=== PATIENT | female | born 1960 | race African-American/Black ===

== ENCOUNTER → 2016-05-14 | Outpatient (CLI) | payer BC, MEDICARE ==
--- NOTE | 2016-05-14 09:46 | XR ---
EXAMINATION TYPE: XR thoraco lumbar junction DATE OF EXAM ORDERED: 05/14/2016 9:33 AM HISTORY: M54.5 low back pain. COMPARISON: None. FINDINGS: 2 views of the thoracolumbar spine show no definite abnormality. Vertebral body height is maintained. Alignment is normal. The pedicles are intact. IMPRESSION: NORMAL THORACOLUMBAR SPINE.
[2016-05-14 09:51] LABS: Anisocytosis Slight; Basophils % (A) 1 %; CH 26.6; CHCM 31.2; Eosinophils # (A) 0.1 k/uL (0-0.7); Eosinophils % (A) 2 %; HCT 37.7 % (34.0-46.0); HDW 2.49; HGB 11.3 gm/dL (11.4-16.0); Hypochromasia Slight; Luc # (Auto) 0.12; Luc % (Auto) 2; Lymphocytes # (A) 1.7 k/uL (1.0-4.8); Lymphocytes % (A) 29 %; MCH 25.8 pg (25.0-35.0); Mean Platelet Volume 7.8; Monocytes # (A) 0.3 k/uL (0-1.0); Monocytes % (A) 5 %; Neutrophils # (A) 3.6 k/uL (1.3-7.7); Neutrophils % (A) 62 %; RBC 4.38 m/uL (3.80-5.40); RDW 17.5 % (11.5-15.5); WBC 5.8 k/uL (3.8-10.6); WBC (Perox) 6.14
[2016-05-14 10:27] LABS: ALT 27 U/L (9-52); AST 25 U/L (14-36); Alkaline Phosphatase 84 U/L (38-126); Anion Gap 10 mmol/L; Blood Urea Nitrogen 11 mg/dL (7-17); Calcium 9.5 mg/dL (8.4-10.2); Carbon Dioxide 26 mmol/L (22-30); Chloride 108 mmol/L (98-107); Glucose 84 mg/dL (74-99); Non-African American GFR(MDRD) >60 (>60 ml/min/1.73 sqM); Potassium 4.2 mmol/L (3.5-5.1); Sodium 144 mmol/L (137-145); Total Bilirubin 0.6 mg/dL (0.2-1.3)
== END | disposition home or self-care (01) ==
LOC: RADXRMAIN 09:12
PROVIDERS: ATTEND Internal Medicine Rheumatology
DX: M54.5 Low back pain (principal)
CPT/HCPCS: 36415; 72080; 80053; 85025

== ENCOUNTER → 2018-02-10 | Outpatient (CLI) | payer MEDICARE | LOC: LABWHC1 11:57 | PROVIDERS: ATTEND Internal Medicine Rheumatology | DX: M06.9 Rheumatoid arthritis, unspecified (principal) | CPT/HCPCS: 36415 ==

== ENCOUNTER → 2020-11-24 | Outpatient (CLI) | payer MEDICARE ==
--- NOTE | 2020-11-24 13:25 | MR ---
EXAMINATION TYPE: MR cervical spine wo con DATE OF EXAM: 11/24/2020 COMPARISON: None HISTORY: Cervicalgia, long standing RA, limited mobility arms, tingling, pain and weakness TECHNIQUE: Multiplanar, multisequence images of the cervical spine were acquired without contrast. C2-C3: No evidence for degenerative disc disease. No disc bulge/herniation or protrusion. No Canal stenosis. Foramina are patent bilaterally. C3-C4: Posterior broad-based disc bulge causes anterior mass effect on the thecal sac, mild spinal st enosis. No definite foraminal encroachment. C4-C5: There is obliteration of the disc space, posterior extension of endplate disc complex causing mass effect on the cervical cord, there is severe spinal stenosis with abnormal signal, low signal on T1, increased signal on T2 suggesting underlying gliosis, difficult to exclude myelomalacia. Bilater al foraminal encroachment is present right greater than left due to uncovertebral joint hypertrophy a nd facet arthropathy. C5-C6: Posterior disc bulge causes mild anterior mass effect on the thecal sac, only mild spinal sten osis. There is uncovertebral joint hypertrophy and facet arthropathy resulting in left-sided foramina l encroachment. C6-C7: Posterior extension of endplate disc complex causes anterior mass effect on the thecal sac. I question some cord signal change at this level, less severe than at C4-5. There is bilateral foramina l encroachment due to uncovertebral joint hypertrophy and facet arthropathy change. C7-T1: Posterior broad-based disc bulge causes minimal anterior mass effect on the thecal sac. There is bilateral foraminal encroachment. Cervical segments are intact. Craniovertebral junction relationships are within normal limits. There is multilevel spondylosis. Retrolisthesis grade 1 C4-5, C5-6, C6-7. Loss of disc height signal is pr esent at intervertebral levels consistent with disc desiccation and degenerative disc disease. Probab le rightward goiter is noted incidentally. There is extension into the superior chest on the right. IMPRESSION: There are cord signal changes greatest at C4-5 with mass effect due to posterior extension endplate d isc complex. There is obliteration of the disc space at this level which may be due to patient's unde rlying arthropathy, contrast-enhanced exam may be of benefit, discitis felt is likely. Degenerative d isc disease and multilevel foraminal encroachment as described. A [place] critical message alert has been initiated for Thao Sotomayor DO via the [employer] Critical Results System on 11/24/2020 1:23 PM. This message alert has been sent to Thao banuelos DO via the preferences provided by the clinician for the receipt of Radiology Critical Findings. Nannette essage ID [id number].
== END | disposition home or self-care (01) ==
LOC: RADMRIMAIN 12:00
PROVIDERS: ATTEND Internal Medicine Rheumatology
DX: M50.323 Other cervical disc degeneration at C6-C7 level (principal); M47.812 Spondylosis without myelopathy or radiculopathy, cervical region
CPT/HCPCS: 72141

== ENCOUNTER → 2021-01-09 | Outpatient (CLI) | payer MEDICARE ==
--- NOTE | 2021-01-12 12:39 | MM ---
Reason for exam: screening (asymptomatic). Last mammogram was performed 4 years and 1 month ago. History: Patient is postmenopausal. Physical Findings: A clinical breast exam by your physician is recommended on an annual basis and results should be correlated with mammographic findings. MG 3D Screening Mammo W/Cad Bilateral CC and MLO view(s) were taken. Prior study comparison: December 10, 2016, bilateral MG 3d screening mammo w/cad. The breast tissue is heterogeneously dense. This may lower the sensitivity of mammography. Stable benign calcifications. There is no discrete abnormality. No significant changes when compared with prior studies. ASSESSMENT: Benign, BI-RAD 2 RECOMMENDATION: Routine screening mammogram of both breasts in 1 year.
== END | disposition home or self-care (01) ==
LOC: RADMAMWWP 14:36
PROVIDERS: ATTEND Internal Medicine
DX: Z12.31 Encounter for screening mammogram for malignant neoplasm of breast (principal); Z78.0 Asymptomatic menopausal state
CPT/HCPCS: 77063; 77067

== ENCOUNTER → 2021-02-09 | Outpatient (CLI) | payer MEDICARE ==
--- NOTE | 2021-02-09 12:58 | XR ---
EXAMINATION TYPE: XR chest 2V DATE OF EXAM: 02/09/2021 COMPARISON: NONE HISTORY: Shortness of breath TECHNIQUE: Frontal and lateral views of the chest are obtained. FINDINGS: Scattered senescent parenchymal changes noted. Hyperinflation compatible with COPD. No evidence for infiltrate. No evidence for atelectasis. Heart size is stable. Mediastinal structures are stable and grossly unremarkable. No evidence for hilar prominence. Degenerative changes dorsal spine. IMPRESSION: 1. No evidence for acute pulmonary disease.
[2021-02-09 13:06] LABS: Anisocytosis Slight; Basophils % (A) 1 %; Eosinophils # (A) 0.1 k/uL (0-0.7); Eosinophils % (A) 2 %; HCT 38.5 % (34.0-46.0); HGB 11.8 gm/dL (11.4-16.0); Hypochromasia Slight; Lymphocytes # (A) 2.4 k/uL (1.0-4.8); Lymphocytes % (A) 38 %; MCH 26.8 pg (25.0-35.0); MCHC 30.5 g/dL (31.0-37.0); MCV 87.8 fL (80.0-100.0); Mean Platelet Volume 7.3; Monocytes # (A) 0.3 k/uL (0-1.0); Monocytes % (A) 5 %; Neutrophils # (A) 3.4 k/uL (1.3-7.7); Neutrophils % (A) 54 %; Platelet Count 269 k/uL (150-450); RBC 4.39 m/uL (3.80-5.40); RDW 18.9 % (11.5-15.5); WBC 6.3 k/uL (3.8-10.6)
[2021-02-09 13:11] LABS: Appearance,Urine Clear (Clear); Bilirubin,Urine Negative (Negative); Blood,Urine Negative (Negative); Color,Urine Light Yellow; Glucose,Urine (UA) Negative (Negative); Ketones,Urine Negative (Negative); Leukocyte Esterase,Urine Negative (Negative); Nitrite,Urine Negative (Negative); Protein,Urine Negative (Negative); Specific Gravity,Urine 1.008 (1.001-1.035); Urobilinogen,Urine <2.0 mg/dL (<2.0)
[2021-02-09 13:15] LABS: Partial Thromboplastin Time 29.8 sec (22.0-30.0); Prothrombin Time 10.8 sec (9.0-12.0)
[2021-02-09 13:25] LABS: ALT 16 U/L (4-34); AST 24 U/L (14-36); African American GFR (CKD) >90 (>60 ml/min/1.73 sqM); Albumin 4.1 g/dL (3.5-5.0); Alkaline Phosphatase 89 U/L (38-126); Anion Gap 7 mmol/L; Blood Urea Nitrogen 11 mg/dL (7-17); Calcium 9.5 mg/dL (8.4-10.2); Carbon Dioxide 27 mmol/L (22-30); Chloride 106 mmol/L (98-107); Glucose 93 mg/dL (74-99); Non-African American GFR(CKD) 79 (>60 ml/min/1.73 sqM); Potassium 3.9 mmol/L (3.5-5.1); Sodium 140 mmol/L (137-145); Total Bilirubin 0.5 mg/dL (0.2-1.3); Total Protein 7.9 g/dL (6.3-8.2)
== END | disposition home or self-care (01) ==
LOC: LABPAT 12:03
PROVIDERS: ATTEND Orthopaedic Surgery Orthopaedic Surgery of the Spine
DX: Z01.812 Encounter for preprocedural laboratory examination (principal); Z79.01 Long term (current) use of anticoagulants; I65.29 Occlusion and stenosis of unspecified carotid artery; M06.9 Rheumatoid arthritis, unspecified; Z13.1 Encounter for screening for diabetes mellitus
CPT/HCPCS: 36415; 71046; 80053; 81003; 82306; 83036; 85025; 85610; 85730

== ENCOUNTER 2021-02-18 08:00 | Inpatient (IN) | payer MEDICARE ==
[2021-02-11 15:05] VITALS: BMI 25.0
[2021-02-25] MEDS ORDERED: ceFAZolin 1,000 MG in SODIUM CHLORIDE 0.9% IRRIGATIO 1,000 ML IRRIGATION PRN (05:00)
[2021-02-25] MEDS ORDERED: DEXAMETHASONE SOD PHOSPHATE 4 MG/ML 1 ML VIAL IV ONE (06:13)
[2021-02-25] MEDS ORDERED: ONDANSETRON 4 MG/2 ML VIAL IVP ONE ×2 (06:13→10:56)
[2021-02-25] MEDS ORDERED: LIDOCAINE 1% (10MG/ML) FOR IV START INTRADERMA PRN (06:13)
[2021-02-25] MEDS ORDERED: HYDROmorphone 0.5 MG/0.5 ML SYRINGE IVP PRN ×2 (07:00→14:15)
[2021-02-25] MEDS: LACTATED RINGERS 1,000 ML IV SCH (10:56)
[2021-02-25] MEDS ORDERED: LABETALOL 5 MG/ML VIAL MDV ONE (11:20)
[2021-02-25] MEDS ORDERED: HYDROmorphone (PF) 1 MG/ML ONE (11:20)
[2021-02-25] MEDS ORDERED: SUCCINYLCHOLINE CHLORIDE 100 MG/5 ML SYR IV ONE (11:20)
[2021-02-25] MEDS ORDERED: KETAMINE 10 MG/ML 20 ML VIAL ONE (11:20)
[2021-02-25] MEDS ORDERED: fentaNYL (PF) 50 MCG/ML 2 ML AMP ONE (11:20)
[2021-02-25] MEDS ORDERED: LIDOCAINE 1% INJ 10MG/ML (20 ML MDV) ONE (11:20)
[2021-02-25] MEDS ORDERED: PROPOFOL 10 MG/ML 20 ML VIAL IV ONE (11:20)
[2021-02-25] MEDS ORDERED: MIDAZOLAM 2 MG/2 ML VIAL ONE (11:20)
[2021-02-25] MEDS ORDERED: DEXAMETHASONE SOD PHOSPHATE 4 MG/ML 1 ML VIAL ONE (11:20)
[2021-02-25] MEDS ORDERED: GLYCOPYRROLATE 0.2 MG/ML 2 ML VIAL ONE (11:20)
[2021-02-25] MEDS ORDERED: ROCURONIUM 10 MG/ML (5 ML VIAL) IV ONE (11:20)
[2021-02-25] MEDS ORDERED: diphenhydrAMINE 50 MG/ML 1 ML VIAL ONE (11:20)
[2021-02-25] MEDS ORDERED: NEOSTIGMINE 1 MG/ML 10 ML VIAL ONE (11:20)
[2021-02-25] MEDS ORDERED: BUPIVACAIN-EPI 0.25%-1:200,000 30 ML VIAL SQ ONE (11:55)
[2021-02-25] MEDS ORDERED: GELATIN SPONGE,ABSORB (LARGE) 1 EACH SPONGE TOPICAL ONE (12:02)
[2021-02-25] MEDS ORDERED: THROMBIN (BOVINE) 5,000 UNIT VIAL TOPICAL ONE (12:03)
--- NOTE | 2021-02-25 12:40 | XR ---
EXAMINATION TYPE: XR cervical spine limited DATE OF EXAM: 02/25/2021 COMPARISON: NONE HISTORY: Needle placement TECHNIQUE: One view submitted FINDINGS: There is soft tissue emphysema and endotracheal tube. Surgical instruments are seen overlyi ng the anterior margin the mid and lower cervical spine. IMPRESSION: Intraoperative localization
[2021-02-25] MEDS ORDERED: LACTATED RINGERS 1,000 ML IV ONE (13:09)
[2021-02-25] MEDS ORDERED: ACETAMINOPHEN TAB 325 MG TAB PO PRN (14:15)
[2021-02-25] MEDS ORDERED: BENZOCAINE/MENTHOL LOZENG 1 EACH LOZENGE MUCOUS MEM PRN (14:15)
[2021-02-25] MEDS ORDERED: ONDANSETRON 4 MG/2 ML VIAL IVP PRN (14:15)
[2021-02-25] MEDS ORDERED: traMADol 50 MG TAB PO PRN ×2 (14:15→14:18)
[2021-02-25] MEDS ORDERED: HYDROcodone/APAP 5-325MG 1 EACH TAB PO PRN (14:15)
[2021-02-25] MEDS ORDERED: CYCLOBENZAPRINE 5 MG TAB PO PRN (14:15)
--- NOTE | 2021-02-25 14:27 | P.OP ---
Date of Procedure: 02/25/21 Preoperative Diagnosis: Cervical myelopathy, severe cervical stenosis C4 5 C5 6 C6 7, cervical myelomalacia, upper extremity weakness, upper extremity radiculopathy, degenerative disc disease C4 5 C5 6 C6 7 with vertebral collapse at C5, herniated nucleus pulposus Postoperative Diagnosis: Same Anesthesia: GETA Pathology: none sent Condition: stable Disposition: PACU Description of Procedure: BRIEF OPERATIVE NOTE Preoperative Diagnosis:Cervical myelopathy, severe cervical stenosis C4 5 C5 6 C6 7, cervical myelomalacia, upper extremity weakness, upper extremity radiculopathy, degenerative disc disease C4 5 C5 6 C6 7 with vertebral collapse at C5, herniated nucleus pulposus Postoperative Diagnosis: Procedure: Anterior cervical decompression with discectomy and fusion C4 5 C5 6 C6 7 C5 cervical corpectomy for decompression Harvesting of local autogenous bone graft Placement of interbody graft from C4 to C6 with a peek cage Placement of interbody allograft bone graft C6 7 Application of anterior cervical plate C4 to C7 Surgeon: Dr. Otto Otter Trawler Boatswain: Laith Waters is present throughout the entire the case persistence during positioning, dissection, exposure, visualization, and all crucial elements of the case as well as closure. Anesthesia: General anesthesia Estimated blood loss: Approximately 200 mL Complications: None apparent Components implanted: K2M peek anterior cervical cage, 19 mm with lordosis from C4 to C6, Vikos interbody allograft bone graft at C6 7 Disposition: To recovery room in good stable condition. OPERATIVE INDICATIONS The patient has had long-standing issues in their neck and upper extremities. She has long history of rheumatoid arthritis as well. She has significant deformities in her hands but has been noticing significant changes at her upper extremities and with her gait. She is having weakness in her right upper extremity. She does not have severe changes at her cervical spine including some anterior collapse at C5 with severe stenosis C4 5 C5 6 C6 7 and stenosis behind the vertebral body of C5. This correlated with her neck and upper extremity symptoms along with the myelomalacia and her myelopathy symptoms that she was expanding. The patient has been through conservative treatment. She is having worsening of her symptoms and we discussed surgical treatment options and the possibility of continuing conservative care for her. We discussed various treatment options including surgery, and the patient wishes to proceed with surgery We discussed the risk, patient's alternatives and benefits of surgery including but not limited to, risk of bleeding risk of infection, risk of need for further surgery, risk of decreased, loss of motion, muscle function, malunion nonunion, hardware failure, nerve damage, paralysis, heart attack, and . OPERATIVE SUMMARY After discussing all the risks, patient alternatives and benefits at length, the patient elected to proceed with surgical intervention, signed informed consent, and presented for their procedure. The patient was seen and examined in the preoperative holding area and the surgical site was marked. The patient was given antibiotics and brought to the operating room. The patient was positioned on the operating room table in a supine position being careful to pad any bony prominences and pressure points. The patient was sedated and intubated by anesthesia in standard fashion. Once the airway and C- spine were stabilized the patient's arms were padded and tucked at her side, with her shoulders gently taped. The head was placed in a donut pad with the neck in good neutral alignment and position. We were careful to maintain the patient's cervical spine and good neutral alignment and position throughout. The patient was prepped and draped in a normal standard fashion. An appropriate timeout and keystone protocol performed. We were able to proceed with the surgery. The local wound area was infiltrated with local anesthetic. An incision was made transversely approximately 2-1/2 cm over the appropriate levels at C5 6. Dissection was taken down subcutaneously to the level of the platysma which was split in line with its fibers. Dissection was taken with a carotid approach, with the trachea and esophagus medial and the carotid sheath laterally. We dissected down to the anterior surface of the vertebral bodies. Intraoperative x-ray was taken which showed a marker at the appropriate level at C4 5 and at C5 6. It was somewhat difficult to ascertain the image given her severe changes in the collapse at C4 5. We were able to positively identify the level. With the appropriate level positively confirmed, we were able to proceed with discectomy at the appropriate levels. All of the operative levels were exposed appropriately. Started at C6 7 with anterior cervical discectomy. The patient had all their twitches back, and there was no evidence of recurrent laryngeal issue. The wound was copiously irrigated and suctioned dry as had been done periodically throughout the case. At the appropriate level/levels, I established an annulotomy with an 11 blade scalpel. At C6 7 A discectomy was performed with a combination of pituitary rongeurs, curettes, a high-speed bur, and Kerrison rongeurs. The posterior longitudinal ligament was taken down as were any posterior osteophytes. This gave good central and bilateral foraminal decompression. There is no evidence of any dural tear or leak. I performed a similar procedure at C5 6. I prepared the endplate at C5 6 as well. At C6 [address] interbody allograft bone graft after appropriate measuring. The endplates were prepared with a high-speed bur. With the endplates in good parallel position, I was able to size for the appropriate size interbody graft. The wound was irrigated and suctioned dry the graft was prepared and malleted into position. It had good alignment and position with the anterior surface flush with the anterior surface of the vertebral bodies of C6 7. At C5 6 and left the disc space opened in preparation for the later corpectomy. I performed further discectomy similarly to as stated above at C4 5. There is severe and nearly complete collapse of disc space at C4 5 and large anterior osteophytes which are taken down. As able get a good discectomy at that level. There was large posterior osteophytic spurring at C4 5 and severely thickened ligamentum with disc herniation. I was able to remove this and get excellent central and bilateral foraminal compression at the level of the disc space at C4 5. There is further stenosis behind C5 and I proceeded with the corpectomy of C5 to get further central decompression behind C5. This gave excellent decompression of the cord. With the decompression completed there is no evidence any dural tear or leak. Good hemostasis was maintained. I then prepared for placement of the interbody graft from C4 C6. The endplates were prepared appropriately and a caliper easily lysed to establish the appropriate size peek cage. The cage was chosen and filled with local autogenous bone graft was harvested at the corpectomy. Next using gentle in- line traction from anesthesia I was able to place the cage at the corpectomy site from C4 to C6 and excellent alignment position with excellent fit and fill and stability. It was checked and found have good stability from C4 to C6. With the grafts intact, I was able to measure and contour and appropriate sized plate. The plate was positioned at the midline over the appropriate levels from C4 to C7. Screw holes were established with a hand drill and drill guide. Screws were placed in good alignment and position with excellent bony purchase. They were seated under the locking device. The construct was checked and found to be stable. Intraoperative x-ray was taken which showed good alignment and position of the implants at the appropriate levels from C4 to C7. There was no evidence of any dural tear or leak. Good hemostasis was maintained. The wound was copiously irrigated and suctioned dry as had been done periodically throughout the case. I placed a deep drain at the site and then The platysma was closed with absorbable suture. The subcutaneous tissue was closed. The subcuticular tissue was closed with absorbable suture. The wound was cleaned and dried and dressed appropriately. A hard cervical collar was placed appropriately. The patient was woken up by anesthesia, extubated, transferred back gently to their hospital bed and brought to the recovery room in good stable condition. The patient will be admitted to the hospital for appropriate postoperative care, medical management and monitoring. We will continue to follow them closely about the postoperative course.
--- NOTE | 2021-02-25 14:28 | XR ---
EXAMINATION TYPE: XR cervical spine 1V DATE OF EXAM: 02/25/2021 COMPARISON: NONE HISTORY: Hardware placement TECHNIQUE: Four views are submitted. FINDINGS: ET tube noted and is postsurgical change involving the mid and lower cervical alignment is anatomic. IMPRESSION: 1. Postoperative.
[2021-02-25] MEDS: SODIUM CHLORIDE 0.9% 1,000 ML IV SCH (17:14)
[2021-02-25] MEDS ORDERED: LATANOPROST 0.005% OPHTH DROPS 2.5 ML BTL BOTH EYES SCH (21:00)
[2021-02-26 04:45] VITALS: BP 142/75; RESP 16; TEMP 98.2
[2021-02-26] MEDS: SODIUM CHLORIDE 0.9% 1,000 ML IV SCH (05:46)
[2021-02-26] MEDS: LACTATED RINGERS 1,000 ML IV SCH (07:45)
[2021-02-26] MEDS ORDERED: CHOLECALCIFEROL 25 MCG (1000 IU) TABLET PO SCH (09:00)
[2021-02-26] MEDS ORDERED: SENNOSIDES-DOCUSATE SODIUM 1 EACH TAB PO SCH (09:00)
--- NOTE | 2021-02-26 09:57 | P.DS ---
Providers Date of admission: 02/25/21 09:57 Attending physician: Arthur Otto Primary care physician: Aspen Ramírez MD Hospital Course: The patient presented on the day of admission as per their operative note. She underwent surgical decompression and fusion with her severe cervical stenosis and myelopathy and myelomalacia. Upper extremity weakness. She feels she is doing well postoperatively. She is tolerating a soft diet and her pain is controlled. She is ambulatory in her room. Physical Exam The incision site is clean dry and intact. There is no erythema no drainage. There is no purulence no evidence of infection. Abdomen soft and nontender. Chest has good excursion with deep inspiration and expiration. The patient has active and passive range of motion intact at the upper and lower extremities. There is no acute change in neurologic status. Hospital Course Postoperative day 1 status post anterior cervical decompression and fusion for severe cervical stenosis with myelopathy. The patient has been making good progress postoperatively. They have completed the prophylactic antibiotics without any signs or symptoms of infection. The patient has been able to advance their diet, and is tolerating diet adequately. The pain was initially controlled with IV medications and is now controlled appropriately with oral medications. The patient has been able to increase their mobilization. The patient has progressed appropriately. I think they are in good stable condition for discharge today. They will be sent home with appropriate prescriptions. I answered their questions to the best of my ability in a language that they can understand and they are agreeable with the plan. They will follow up as directed in approximately 2 weeks or sooner if she is having. Patient Condition at Discharge: Good Plan - Discharge Summary Discharge Rx Participant: Yes New Discharge Prescriptions: New HYDROcodone/APAP 5-325MG [[place] 5] 1 each PO Q6HR PRN #28 tab PRN Reason: Pain No Action Latanoprost/Pf [Latanoprost 0.005% Eye Drop] 1 drop BOTH EYES HS Cholecalciferol [Vitamin D3 (25 Mcg = 1000 Iu)] 50 mcg PO DAILY Celecoxib [CeleBREX] 200 mg PO BID Etanercept [Enbrel] 25 mg SQ TH traMADol HCL [Ultram] 50 mg PO Q6HR PRN PRN Reason: Pain Discharge Medication List Celecoxib [CeleBREX] 200 mg PO BID 02/11/21 [History] Cholecalciferol [Vitamin D3 (25 Mcg = 1000 Iu)] 50 mcg PO DAILY 02/11/21 [History] Etanercept [Enbrel] 25 mg SQ TH 02/11/21 [History] Latanoprost/Pf [Latanoprost 0.005% Eye Drop] 1 drop BOTH EYES HS 02/11/21 [History] traMADol HCL [Ultram] 50 mg PO Q6HR PRN 02/11/21 [History] HYDROcodone/APAP 5-325MG [[place] 5] 1 each PO Q6HR PRN #28 tab 02/26/21 [Rx] Follow up Appointment(s)/Referral(s): Arthur Otto DO [Doctor of Osteopathic Medicine] - 2 Weeks Activity/Diet/Wound Care/Special Instructions: Keep site clean. May shower with waterproof Tegaderm intact. Do not soak in a tub. After 72 hours postoperatively, patient May remove dressing and then may shower with area uncovered. Leave glue intact and allow it to fray off on its own. May ambulate as tolerated. Avoid heavy or rigorous activity. No repetitive bending twisting or lifting. No overhead work. . Keep Hard cervical collar intact. May remove collar for bathing, but should avoid and significant motion with collar off Discharge Disposition: HOME SELF-CARE
[2021-02-26 11:15] VITALS: PULSE 78
== END 2021-02-26 12:17 | disposition home or self-care (01) | DRG 472 ==
LOC: EDSTATUS 08:00 → 2ORMAIN 02-25 09:57 → 5NMEDONC 02-25 15:20
PROVIDERS: ADMIT Orthopaedic Surgery Orthopaedic Surgery of the Spine; ATTEND Orthopaedic Surgery Orthopaedic Surgery of the Spine
PROC: 0RG20A0 Fusion of 2 or more Cervical Vertebral Joints with Interbody Fusion Device, Anterior Approach, Anterior Column, Open Approach (ICD-10-PCS; 2021-02-25)
PROC: 0RG2070 Fusion of 2 or more Cervical Vertebral Joints with Autologous Tissue Substitute, Anterior Approach, Anterior Column, Open Approach (ICD-10-PCS; 2021-02-25)
PROC: 0RB30ZZ Excision of Cervical Vertebral Disc, Open Approach (ICD-10-PCS; principal; 2021-02-25 11:15)
DX: M48.02 Spinal stenosis, cervical region (principal); G95.89 Other specified diseases of spinal cord; M47.12 Other spondylosis with myelopathy, cervical region; R53.1 Weakness; M06.9 Rheumatoid arthritis, unspecified; M50.121 Cervical disc disorder at C4-C5 level with radiculopathy; M50.222 Other cervical disc displacement at C5-C6 level; M50.223 Other cervical disc displacement at C6-C7 level; F17.200 Nicotine dependence, unspecified, uncomplicated; F17.218 Nicotine dependence, cigarettes, with other nicotine-induced disorders; E66.3 Overweight; M43.12 Spondylolisthesis, cervical region; M50.321 Other cervical disc degeneration at C4-C5 level; M50.323 Other cervical disc degeneration at C6-C7 level; Z20.822 Contact with and (suspected) exposure to COVID-19
CPT/HCPCS: 72020; 72040; 87635

== ENCOUNTER → 2024-01-23 | Outpatient (CLI) | payer MEDICARE ==
[2024-01-23 14:58] LABS: Basophils # (A) 0.06 X 10*3/uL (0.00-0.10); Basophils % (A) 1.5 %; Eosinophils # (A) 0.11 X 10*3/uL (0.04-0.35); Eosinophils % (A) 2.7 %; HCT 34.9 % (37.2-46.3); Lymphocytes % (A) 49.4 %; MCH 25.1 pg (27.0-32.0); MCHC 31.5 g/dL (32.0-37.0); MCV 79.5 FL (80.0-97.0); Mean Platelet Volume 9.4 FL (9.5-12.2); Monocytes # (A) 0.42 X 10*3/uL (0.20-1.00); Monocytes % (A) 10.4 %; NRBC Per 100 WBC 0 X 10*3/uL (0.00-0.01); Neutrophils # (A) 1.45 X 10*3/uL (1.80-7.70); Neutrophils % (A) 35.8 %; Platelet Count 281 X 10*3/uL (140-440); RBC 4.39 X 10*6/uL (4.10-5.20); RDW 18.9 % (11.5-14.5); WBC 4.05 X 10*3/uL (4.50-10.00)
[2024-01-23 15:00] LABS: ALT 17 U/L (8-44); AST 24 U/L (13-35); Albumin 4.4 g/dL (3.8-4.9); Albumin/Globulin Ratio 1.42 Ratio (1.60-3.17); Alkaline Phosphatase 78 U/L (41-126); Blood Urea Nitrogen 16.2 mg/dL (9.0-27.0); Calcium 9.6 mg/dL (8.7-10.3); Carbon Dioxide 25.5 mmol/L (21.6-31.8); Chloride 107 mmol/L (96-109); Globulin 3.1 g/dL (1.6-3.3); Glucose 86 mg/dL (70-110); Potassium 4.6 mmol/L (3.5-5.5); Sodium 143 mmol/L (135-145); Total Bilirubin 0.5 mg/dL (0.3-1.2); Total Protein 7.5 g/dL (6.2-8.2)
== END | disposition home or self-care (01) ==
LOC: LABWHC1 10:31
PROVIDERS: ATTEND Internal Medicine Rheumatology
DX: M06.9 Rheumatoid arthritis, unspecified (principal)
CPT/HCPCS: 36415; 80053; 85025

== ENCOUNTER → 2024-09-14 | Outpatient (CLI) | payer MEDICARE ==
[2024-09-14 15:29] LABS: Basophils # (A) 0.05 X 10*3/uL (0.00-0.10); Basophils % (A) 1.2 %; Eosinophils # (A) 0.18 X 10*3/uL (0.04-0.35); Eosinophils % (A) 4.3 %; HCT 36.6 % (37.2-46.3); HGB 11.4 g/dL (12.0-15.0); Immature Grans, Automated 0.20 %; Lymphocytes # (A) 2.08 X 10*3/uL (0.90-5.00); Lymphocytes % (A) 49.4 %; MCH 25.5 pg (27.0-32.0); MCHC 31.1 g/dL (32.0-37.0); MCV 81.9 FL (80.0-97.0); Monocytes # (A) 0.45 X 10*3/uL (0.20-1.00); Monocytes % (A) 10.7 %; NRBC Per 100 WBC 0 X 10*3/uL (0.00-0.01); Neutrophils # (A) 1.44 X 10*3/uL (1.80-7.70); Neutrophils % (A) 34.2 %; Platelet Count 293 X 10*3/uL (140-440); RBC 4.47 X 10*6/uL (4.10-5.20); RDW 17.7 % (11.5-14.5); WBC 4.21 X 10*3/uL (4.50-10.00)
[2024-09-14 15:43] LABS: ALT 18 U/L (8-44); AST 25 U/L (13-35); Albumin 4.2 g/dL (3.8-4.9); Albumin/Globulin Ratio 1.17 Ratio (1.60-3.17); Alkaline Phosphatase 85 U/L (41-126); Anion Gap 11.70 mmol/L (4.00-12.00); BUN/Creat Ratio 22.50 Ratio (12.00-20.00); Blood Urea Nitrogen 18.0 mg/dL (9.0-27.0); Calcium 9.6 mg/dL (8.7-10.3); Carbon Dioxide 23.3 mmol/L (21.6-31.8); Chloride 106 mmol/L (96-109); Cholesterol 198.00 mg/dL (0.00-200.00); Ferritin 83.0 ng/mL (10.0-291.0); Globulin 3.6 g/dL (1.6-3.3); Glucose 91 mg/dL (70-110); HDL Cholesterol 91.40 mg/dL (40.00-60.00); LDL Cholesterol,Calculated 93.1 mg/dL (0.0-131.0); Potassium 4.1 mmol/L (3.5-5.5); Sodium 141 mmol/L (135-145); Total Protein 7.8 g/dL (6.2-8.2); Triglycerides 67.40 mg/dL (0.00-149.00); VLDL Calculation 13.48 mg/dL (5.00-40.00)
[2024-09-14 15:52] LABS: Bilirubin,Urine Negative (Negative); Blood,Urine Negative (Negative); Color,Urine Yellow (Yellow); Ketones,Urine Trace (Negative); Nitrite,Urine Negative (Negative); PH, Urine 5.0; Specific Gravity,Urine 1.020 (1.001-1.030); Urobilinogen,Urine 0.2 E.U./DL
== END | disposition home or self-care (01) ==
LOC: LABWHC1 08:41
PROVIDERS: ATTEND Internal Medicine
DX: Z00.00 Encounter for general adult medical examination without abnormal findings (principal); Z11.59 Encounter for screening for other viral diseases
CPT/HCPCS: 36415; 80053; 80061; 81003; 82728; 83036; 84443; 85025; 86803